=== PATIENT | female | born 1970 | race Caucasian/White ===

== ENCOUNTER 2020-08-14 15:55 | Inpatient (IN) | payer BC ==
[~2020-08-14] VITALS: Ht 165.1 cm; Wt 66.1 kg
[2020-08-14 16:14] VITALS: BP 128/80
[2020-08-14] MEDS ORDERED: GLYBURIDE 5 MG T5 M1 PO (16:19)
[2020-08-14] MEDS ORDERED: HYDROCHLOROTHIA25 M2 PO (16:19)
[2020-08-14] MEDS ORDERED: VITAMIN D-40010 MCG PO (16:19)
[2020-08-14] MEDS ORDERED: COZAAR 25 MG TA25 M1 PO (16:19)
[2020-08-14] MEDS ORDERED: METFORMIN HCL500 M3 PO (16:19)
[2020-08-14] MEDS ORDERED: ZYRTEC10 M5 PO (16:20)
[2020-08-14] MEDS ORDERED: ST. JOHN'S WORT1 GM PO (16:20)
[2020-08-14 16:29] LABS: ABSOLUTE LYMPHOCYTES 1.4 thou/uL (0.8-5.3); ABSOLUTE MONOCYTES 0.5 thou/uL (0.0-1.2); ABSOLUTE NEUTROPHILS 3.5 thou/uL (1.6-8.1); BASOPHILS 0.4 %; EOSINOPHILS 0.2 %; HEMATOCRIT 41.7 % (37.0-47.0); HEMOGLOBIN 14.4 gm/dL (12.0-15.0); LYMPHOCYTES 25.8 %; MCH 29.9 pg (26.0-34.0); MCHC 34.6 g/dL (28.0-37.0); MCV 86.5 fL (80.0-100.0); MONOCYTES 8.7 %; MPV 8.9 fl. (7.2-11.1); NUCLEATED RBCS 0 /100WBC; PLATELET COUNT* 208 thou/uL (150-400); POLYS 64.9 %; RBC 4.82 mil/uL (4.20-5.00); RDW-CV 12.4 % (10.5-14.5); WBC 5.5 thou/uL (4.0-11.0)
[2020-08-14 16:37] LABS: CALCIUM 9.1 mg/dL (8.5-10.1); CREATININE 0.8 mg/dL (0.6-1.3)
[2020-08-14 16:39] LABS: POTASSIUM 2.9 mmol/L (3.5-5.1)
[2020-08-14 16:48] LABS: ALBUMIN 3.4 g/dL (3.4-5.0); TOTAL BILIRUBIN 0.8 mg/dL (<0.1-1.0); TOTAL PROTEIN 7.4 g/dL (6.4-8.2)
[2020-08-14 20:34] VITALS: BP 99/61
[2020-08-14 23:29] VITALS: BP 110/74
[2020-08-15 04:00] VITALS: BP 98/71
[2020-08-15 05:14] LABS: HEMATOCRIT 42.5 % (37.0-47.0); HEMOGLOBIN 14.5 gm/dL (12.0-15.0); MCH 29.9 pg (26.0-34.0); MCHC 34.2 g/dL (28.0-37.0); MCV 87.3 fL (80.0-100.0); MPV 8.9 fl. (7.2-11.1); RBC 4.87 mil/uL (4.20-5.00); RDW-CV 12.5 % (10.5-14.5); WBC 4.1 thou/uL (4.0-11.0)
[2020-08-15 06:20] LABS: CALCIUM 9.4 mg/dL (8.5-10.1); CREATININE 0.7 mg/dL (0.6-1.3)
[2020-08-15 06:23] LABS: POTASSIUM 4.3 mmol/L (3.5-5.1)
[2020-08-15] MEDS ORDERED: GUAIFENESIN AC473 ML PO (08:26)
[2020-08-15] MEDS ORDERED: TESSALON PERLE100 MG PO (08:26)
[2020-08-15] MEDS ORDERED: ZINC SULFATE 2220 MG PO (08:26)
[2020-08-15] MEDS ORDERED: VITAMINC500 PO (08:26)
[2020-08-15] MEDS ORDERED: DEXAMETHASONE 22 M1 PO (08:26)
[2020-08-15] MEDS ORDERED: PROAIR HFA8.5 GM INH ×2 (08:27→08:34)
[2020-08-15 09:00] VITALS: BP 110/74
[2020-08-15 12:37] VITALS: BP 118/76
[2020-08-15 14:30] VITALS: BP 118/76
[2020-08-15 14:32] VITALS: BP 118/76
--- NOTE | 2020-08-15 15:35 | NUR ---
pt.aox4,vss,denies painordiscomfort.tolerates room air w/o difficulty. call light and personal belongings placed within reach. passed o2 sat study per RT. dc packet provided and verbalized understanding of contents. pt left by wheelchair and transported self by personal car. pt.in stable condition at time of leaving unit.
--- NOTE | 2020-08-16 13:45 | EKG ---
[place] [address] ELECTROCARDIOGRAM REPORT Name: SREE WHITE Room: [address] IN [facility]#: [id number] Admission: 08/14/20 Attend Phys: Vida Chou MD Discharge: 08/15/20 Date of : 66 Date of Service: 08/14/20 1601 Report #: [id number] THIS REPORT FOR: //name// [facility] ED Test Date: 2020-08-14 Test Time: 16:01:45 Pat Name: SREE WHITE Department: Room: [facility] Gender: F Olive Packer: JUDITH : 1970 Requested By: Jonnie Jones Order Number: [id number] MD: Bon Leong Measurements Intervals [place] Rate: 102 P: 32 UT: 123 QRS: -2 QRSD: 88 T: 7 QT: 374 QTc: 488 Interpretive Statements Sinus tachycardia Borderline repolarization abnormality Borderline prolonged QT interval Baseline wander in lead(s) V1,V2,V6 No previous ECG available for comparison Electronically Signed On 08-16-2020 13:45:26 HYDRAULIC REPAIRER by Bon Leong [email or web address] <ELECTRONICALLY SIGNED> By: Bon Leong MD, [facility] 08/16/20 1345 1601 1601 Bon Leong MD, [facility] /EPI
== END 2020-08-15 14:50 | disposition home or self-care (01) | DRG 177 ==
LOC: M.ERS 15:55 → M.TBA-ER 17:06 → M.2W 20:29
PROVIDERS: Emergency Medicine Emergency Medical Services; ADMIT Family Medicine; ATTEND Family Medicine
DX: U07.1 COVID-19 (principal); J12.82 Pneumonia due to coronavirus disease 2019; J96.01 Acute respiratory failure with hypoxia; I10 Essential (primary) hypertension; E11.9 Type 2 diabetes mellitus without complications; Z79.84 Long term (current) use of oral hypoglycemic drugs; Z79.899 Other long term (current) drug therapy; Z88.8 Allergy status to other drugs, medicaments and biological substances

== ENCOUNTER 2020-08-20 16:13 | Emergency (ER) | payer BC ==
[~2020-08-20] VITALS: Ht 154.9 cm; Wt 61.2 kg
[~2020-08-20 16:13] MED LIST: COZAAR 25 MG TA25 M1 PO; DEXAMETHASONE 22 M1 PO; GLYBURIDE 5 MG T5 M1 PO; GUAIFENESIN AC473 ML PO; HYDROCHLOROTHIA25 M2 PO; METFORMIN HCL500 M3 PO; PROAIR HFA8.5 GM INH; ST. JOHN'S WORT1 GM PO; TESSALON PERLE100 MG PO; VITAMIN D-40010 MCG PO; VITAMINC500 PO; ZINC SULFATE 2220 MG PO; ZYRTEC10 M5 PO
[2020-08-20] MEDS ORDERED: NYSTATIN100000 UNI SW&SWALLOW (16:52)
[2020-08-20 16:54] VITALS: BP 108/69
== END 2020-08-20 16:55 | disposition home or self-care (01) ==
LOC: M.ERS 16:13
DX: E11.65 Type 2 diabetes mellitus with hyperglycemia (principal); I10 Essential (primary) hypertension; Z90.710 Acquired absence of both cervix and uterus; Z88.8 Allergy status to other drugs, medicaments and biological substances